=== PATIENT | male | born 1945 | race Caucasian/White ===

== ENCOUNTER → 2017-11-05 | Outpatient (CLI) | payer OTHER ==
[2017-11-05 13:58] LABS: DIGOXIN LEVEL 0.7 NG/ML (0.5-2.0)
== END ==
LOC: M SMT 10:10
DX: I48.91 Unspecified atrial fibrillation (principal)
CPT/HCPCS: 80162

== ENCOUNTER 2017-11-11 16:11 | Inpatient (IN) | payer OTHER ==
[2017-11-11 16:59] LABS: BASO # 0.1 10^3/uL (0.0-0.2); BASO % 0.7 % (0.0-1.0); EOS # 0.1 10^3/uL (0.0-0.50); EOS % 0.5 % (0.0-3.0); HEMATOCRIT 37.7 % (42.0-52.0); HEMOGLOBIN 12.4 g/dl (13.5-17.5); IMMATURE GRANULOCYTE % 0.6 % (0-3.0); LYMPH # 1.5 10^3/uL (1.5-4.5); LYMPH % 13.2 % (24.0-44.0); MEAN CORPUSCULAR HEMOGLOBIN 28.5 pg (27.0-33.0); MEAN CORPUSCULAR HGB CONC 32.9 g/dl (32.0-36.5); MEAN CORPUSCULAR VOLUME 86.7 fl (80.0-96.0); MONO # 0.9 10^3/uL (0.0-0.8); MONO % 8.5 % (0.0-5.0); NEUTROPHILS # 8.4 10^3/uL (1.8-7.7); NEUTROPHILS % 76.5 % (36.0-66.0); PLATELET COUNT, AUTOMATED 174 10^3/uL (150-450); RED BLOOD COUNT 4.35 10^6/uL (4.30-6.10); RED CELL DISTRIBUTION WIDTH 13.1 % (11.5-14.5)
[2017-11-11] MEDS: GI COCKTAIL 50ML BTL(HYOSCYAMINE/MAALOX/LIDOCAINE VISCOUS)(1:3:1) PO ×2 (17:14)
[2017-11-11 17:17] LABS: INR 2.52; PROTHROMBIN TIME 27.7 SECONDS (12.1-14.4)
[2017-11-11 18:04] LABS: ANION GAP 10 MEQ/L (8-16); BLOOD UREA NITROGEN 20 MG/DL (7-18); CALCIUM LEVEL 8.5 MG/DL (8.8-10.2); CARBON DIOXIDE LEVEL 24 MEQ/L (21-32); CHLORIDE LEVEL 102 MEQ/L (98-107); CPK CREATINE PHOSPHOKINASE 113 U/L (39-308); CREATININE FOR GFR 1.11 MG/DL (0.70-1.30); DIGOXIN LEVEL 0.6 NG/ML (0.5-2.0); GLOMERULAR FILTRATION RATE > 60.0 (>42); GLUCOSE, FASTING 453 MG/DL (70-100); MB/CK RELATIVE INDEX 5.13 (< OR =4); POTASSIUM SERUM 5.8 MEQ/L (3.5-5.1); SODIUM LEVEL 136 MEQ/L (136-145); TROPONIN I < 0.02 NG/ML (< 0.10)
[2017-11-11] MEDS: HumuLIN R (REGULAR) INSULIN (NovoLIN R) **100U/ML** PER UNIT IV ×4 (18:09→22:50)
[2017-11-11] MEDS: ATORVASTATIN 20 MG TAB PO ×2 (21:00)
[2017-11-11 22:17] LABS: CPK CREATINE PHOSPHOKINASE 84 U/L (39-308); MB/CK RELATIVE INDEX 5.24 (< OR =4); TROPONIN I < 0.02 NG/ML (< 0.10)
[2017-11-11] MEDS: NS 1,000 ML IV ×2 (22:50)
[2017-11-11] MEDS: ONDANSETRON 4MG/2ML VIAL (J2405) IV ×2 (22:50)
[2017-11-11] MEDS ORDERED: NITROGLYCERIN 0.4 MG SUBL TABLET SL ×2 (23:30)
[2017-11-11] MEDS ORDERED: GLUCAGON FOR INJ 1 MG VIAL (J1610) SC ×2 (23:45)
[2017-11-11] MEDS ORDERED: GLUCOSE 4 GM CHEW TABLET PO ×2 (23:45)
[2017-11-11] MEDS ORDERED: DEXTROSE 50% 50 ML SYRINGE IV ×2 (23:45)
[2017-11-12 01:41] LABS: BEDSIDE GLUCOSE 220 MG/DL (83-110)
[2017-11-12] MEDS: NS 1,000 ML IV ×2 (02:50)
[2017-11-12] MEDS: SOD POLYSTYRENE SULFONATE SUSP 15 GM/60 ML UD PO ×2 (02:50)
[2017-11-12 05:13] LABS: BEDSIDE GLUCOSE 340 MG/DL (83-110)
[2017-11-12 06:21] LABS: HEMATOCRIT 38.7 % (42.0-52.0); HEMOGLOBIN 12.6 g/dl (13.5-17.5); MEAN CORPUSCULAR HEMOGLOBIN 28.1 pg (27.0-33.0); MEAN CORPUSCULAR HGB CONC 32.6 g/dl (32.0-36.5); MEAN CORPUSCULAR VOLUME 86.2 fl (80.0-96.0); PLATELET COUNT, AUTOMATED 183 10^3/uL (150-450); RED BLOOD COUNT 4.49 10^6/uL (4.30-6.10); RED CELL DISTRIBUTION WIDTH 13.5 % (11.5-14.5); WHITE BLOOD COUNT 13.7 10^3/uL (4.0-10.0)
[2017-11-12 06:47] LABS: INR 2.44
[2017-11-12 06:54] LABS: ANION GAP 13 MEQ/L (8-16); BLOOD UREA NITROGEN 25 MG/DL (7-18); CALCIUM LEVEL 8.8 MG/DL (8.8-10.2); CARBON DIOXIDE LEVEL 22 MEQ/L (21-32); CHLORIDE LEVEL 105 MEQ/L (98-107); CREATININE FOR GFR 1.15 MG/DL (0.70-1.30); GLOMERULAR FILTRATION RATE > 60.0 (>42); GLUCOSE, FASTING 354 MG/DL (70-100); POTASSIUM SERUM 4.5 MEQ/L (3.5-5.1); SODIUM LEVEL 140 MEQ/L (136-145); THYROID STIMULATING HORMONE 0.577 uIU/ML (0.358-3.740); TROPONIN I 0.03 NG/ML (< 0.10)
[2017-11-12] MEDS: ONDANSETRON 4MG/2ML VIAL (J2405) IV ×2 (07:00)
[2017-11-12] MEDS: PANTOPRAZOLE 40MG TAB (PROTONIX) PO ×6 (08:00→17:37)
[2017-11-12 08:02] LABS: CPK CREATINE PHOSPHOKINASE 126 U/L (39-308); MB/CK RELATIVE INDEX 5.24 (< OR =4)
[2017-11-12] MEDS: DIGOXIN 0.125 MG TAB PO ×4 (09:00→13:18)
[2017-11-12] MEDS: LEVEMIR (INSULIN DETEMIR) 1 UNITS/0.01ML SC ×8 (09:00→21:01)
[2017-11-12] MEDS: ASPIRIN 81 MG ENTERIC TAB PO ×4 (09:00→13:18)
[2017-11-12] MEDS: CARVedilol 12.5 MG TAB PO ×6 (09:00→21:00)
[2017-11-12] MEDS: VITAMIN D 1,000 INTERNATIONAL UNITS TABLET PO ×4 (09:00→13:18)
[2017-11-12] MEDS: LISINOPRIL 20 MG TAB PO ×4 (09:00→13:18)
[2017-11-12 09:31] LABS: BEDSIDE GLUCOSE 375 MG/DL (83-110)
[2017-11-12] MEDS: HumaLOG INSULIN (NovoLOG) PER UNIT SC ×6 (09:36→17:37)
[2017-11-12] MEDS ORDERED: E-Z-HD 98% w/w 340GM SUSP BTL As Ordered ×2 (11:12)
[2017-11-12] MEDS ORDERED: E-Z-PAQUE 96% w/w SUSP 176GM BTL As Ordered ×2 (11:12)
[2017-11-12] MEDS ORDERED: E-Z-GAS II EFFERVESCENT PACKET (SODIUM BICARB./CITRIC ACID/SIMETHICONE) As Ordered ×2 (11:12)
[2017-11-12] MEDS ORDERED: ISOVUE-370 76% 100ML VIAL (Q9967) As Ordered ×2 (12:32)
[2017-11-12 13:02] LABS: BEDSIDE GLUCOSE 315 MG/DL (83-110)
[2017-11-12] MEDS: WARFARIN SOD 3 MG TAB PO ×2 (17:37)
[2017-11-12] MEDS: ATORVASTATIN 20 MG TAB PO ×2 (21:00)
[2017-11-13 06:13] LABS: HEMATOCRIT 36.7 % (42.0-52.0); HEMOGLOBIN 11.9 g/dl (13.5-17.5); MEAN CORPUSCULAR HEMOGLOBIN 28.5 pg (27.0-33.0); MEAN CORPUSCULAR HGB CONC 32.4 g/dl (32.0-36.5); MEAN CORPUSCULAR VOLUME 87.8 fl (80.0-96.0); PLATELET COUNT, AUTOMATED 175 10^3/uL (150-450); RED BLOOD COUNT 4.18 10^6/uL (4.30-6.10); WHITE BLOOD COUNT 15.1 10^3/uL (4.0-10.0)
[2017-11-13 06:19] LABS: INR 4.39
[2017-11-13 06:31] LABS: ANION GAP 8 MEQ/L (8-16); BLOOD UREA NITROGEN 34 MG/DL (7-18); CALCIUM LEVEL 8.2 MG/DL (8.8-10.2); CARBON DIOXIDE LEVEL 27 MEQ/L (21-32); CHLORIDE LEVEL 106 MEQ/L (98-107); CREATININE FOR GFR 1.26 MG/DL (0.70-1.30); GLOMERULAR FILTRATION RATE > 60.0 (>42); GLUCOSE, FASTING 337 MG/DL (70-100); SODIUM LEVEL 141 MEQ/L (136-145)
[2017-11-13 07:45] LABS: ESTIMATED AVERAGE GLUCOSE 174 MG/DL (60-110); HEMOGLOBIN A1c 7.7 %
[2017-11-13 07:56] LABS: CPK CREATINE PHOSPHOKINASE 389 U/L (39-308); MB/CK RELATIVE INDEX 3.24 (< OR =4); TROPONIN I 2.18 NG/ML (< 0.10)
[2017-11-13] MEDS: LISINOPRIL 20 MG TAB PO ×2 (08:20)
[2017-11-13] MEDS: DIGOXIN 0.125 MG TAB PO ×2 (08:20)
[2017-11-13] MEDS: CARVedilol 12.5 MG TAB PO ×4 (08:21→21:32)
[2017-11-13] MEDS: ASPIRIN 81 MG ENTERIC TAB PO ×2 (08:21)
[2017-11-13] MEDS: VITAMIN D 1,000 INTERNATIONAL UNITS TABLET PO ×2 (08:21)
[2017-11-13] MEDS: PANTOPRAZOLE 40MG TAB (PROTONIX) PO ×4 (08:22→17:29)
[2017-11-13] MEDS: LEVEMIR (INSULIN DETEMIR) 1 UNITS/0.01ML SC ×2 (08:22)
[2017-11-13] MEDS: HumaLOG INSULIN (NovoLOG) PER UNIT SC ×6 (08:23→17:30)
[2017-11-13 11:53] LABS: BEDSIDE GLUCOSE 219 MG/DL (83-110)
[2017-11-13 11:53] LABS: BEDSIDE GLUCOSE 325 MG/DL (83-110)
[2017-11-13 11:53] LABS: BEDSIDE GLUCOSE 217 MG/DL (83-110)
[2017-11-13 11:53] LABS: BEDSIDE GLUCOSE 415 MG/DL (83-110)
[2017-11-13 13:04] LABS: CPK CREATINE PHOSPHOKINASE 473 U/L (39-308); MB/CK RELATIVE INDEX 2.73 (< OR =4); TROPONIN I 1.45 NG/ML (< 0.10)
[2017-11-13] MEDS ORDERED: SLF 3 ML SYR IV ×2 (14:45)
[2017-11-13] MEDS: ACETAMINOPHEN TAB 650MG DOSE (2X325MG) PO ×2 (16:24)
[2017-11-13 16:57] LABS: BEDSIDE GLUCOSE 165 MG/DL (83-110)
[2017-11-13] MEDS ORDERED: WARFARIN SOD 3 MG TAB PO ×2 (17:00)
[2017-11-13] MEDS: ATORVASTATIN 20 MG TAB PO ×2 (21:31)
[2017-11-13] MEDS: SLF 3 ML SYR IV ×2 (21:32)
[2017-11-13 21:50] LABS: APPEARANCE, URINE CLEAR (CLEAR); BACTERIA, URINE AUTO NEGATIVE (NEGATIVE); BILIRUBIN, URINE AUTO NEGATIVE (NEGATIVE); BLOOD, URINE BLOOD 2+ (NEGATIVE); COLOR, URINE STRAW (YELLOW); GLUCOSE, URINE (UA) AUTO NEGATIVE (NEGATIVE); KETONE, URINE AUTO NEGATIVE (NEGATIVE); LEUKOCYTE ESTERASE, URINE AUTO NEGATIVE (NEGATIVE); MUCUS, URINE SMALL (NEGATIVE); NITRITE, URINE AUTO NEGATIVE (NEGATIVE); PROTEIN, URINE AUTO NEGATIVE (NEGATIVE); RBC, URINE AUTO 8 /HPF (0-3); SPECIFIC GRAVITY URINE AUTO 1.008 (1.002-1.035); SQUAMOUS EPITHELIAL CELL UR AU 0 /HPF (0-6); UROBILINOGEN, URINE AUTO 0.2 mg/dL (0.0-2.0); WBC, URINE AUTO 2 /HPF (0-3)
[2017-11-13 21:51] LABS: INR 3.85; PROTHROMBIN TIME 38.8 SECONDS (12.1-14.4)
[2017-11-14] MEDS: ACETAMINOPHEN TAB 650MG DOSE (2X325MG) PO ×4 (00:56→11:50)
[2017-11-14] MEDS: SLF 3 ML SYR IV ×6 (06:00→21:01)
[2017-11-14 06:45] LABS: HEMATOCRIT 36.5 % (42.0-52.0); HEMOGLOBIN 12.2 g/dl (13.5-17.5); MEAN CORPUSCULAR HEMOGLOBIN 28.4 pg (27.0-33.0); MEAN CORPUSCULAR HGB CONC 33.4 g/dl (32.0-36.5); MEAN CORPUSCULAR VOLUME 84.9 fl (80.0-96.0); PLATELET COUNT, AUTOMATED 159 10^3/uL (150-450); RED CELL DISTRIBUTION WIDTH 13.2 % (11.5-14.5); WHITE BLOOD COUNT 10.4 10^3/uL (4.0-10.0)
[2017-11-14 06:54] LABS: INR 2.93; PROTHROMBIN TIME 31.2 SECONDS (12.1-14.4)
[2017-11-14 07:35] LABS: ANION GAP 9 MEQ/L (8-16); BLOOD UREA NITROGEN 14 MG/DL (7-18); CARBON DIOXIDE LEVEL 28 MEQ/L (21-32); CHLORIDE LEVEL 105 MEQ/L (98-107); CPK CREATINE PHOSPHOKINASE 225 U/L (39-308); CREATININE FOR GFR 0.76 MG/DL (0.70-1.30); GLOMERULAR FILTRATION RATE > 60.0 (>42); GLUCOSE, FASTING 192 MG/DL (70-100); MB/CK RELATIVE INDEX 2.18 (< OR =4); POTASSIUM SERUM 3.8 MEQ/L (3.5-5.1); SODIUM LEVEL 142 MEQ/L (136-145); TROPONIN I 0.66 NG/ML (< 0.10)
[2017-11-14] MEDS: ASPIRIN 81 MG ENTERIC TAB PO ×2 (07:57)
[2017-11-14] MEDS: HumaLOG INSULIN (NovoLOG) PER UNIT SC ×6 (07:57→18:00)
[2017-11-14] MEDS: VITAMIN D 1,000 INTERNATIONAL UNITS TABLET PO ×2 (07:57)
[2017-11-14] MEDS: PANTOPRAZOLE 40MG TAB (PROTONIX) PO ×4 (07:58→18:45)
[2017-11-14] MEDS: DIGOXIN 0.125 MG TAB PO ×2 (07:58)
[2017-11-14] MEDS: LISINOPRIL 20 MG TAB PO ×2 (07:59)
[2017-11-14] MEDS: CARVedilol 12.5 MG TAB PO ×4 (08:00→20:17)
[2017-11-14] MEDS: CLOPIDOGREL 75 MG TAB PO ×2 (11:50)
[2017-11-14 11:52] LABS: BEDSIDE GLUCOSE 291 MG/DL (83-110)
[2017-11-14] MEDS: MAGIC MOUTHWASH SUSPENSION BTL SSP ×2 (17:14)
[2017-11-14 17:52] LABS: BEDSIDE GLUCOSE 281 MG/DL (83-110)
[2017-11-14] MEDS: ATORVASTATIN 20 MG TAB PO ×2 (20:16)
[2017-11-15] MEDS: CARVedilol 12.5 MG TAB PO ×2 (05:17)
[2017-11-15] MEDS: SLF 3 ML SYR IV ×2 (05:18)
[2017-11-15 05:40] LABS: HEMOGLOBIN 13.4 g/dl (13.5-17.5); MEAN CORPUSCULAR HEMOGLOBIN 28.2 pg (27.0-33.0); MEAN CORPUSCULAR HGB CONC 32.7 g/dl (32.0-36.5); MEAN CORPUSCULAR VOLUME 86.1 fl (80.0-96.0); PLATELET COUNT, AUTOMATED 165 10^3/uL (150-450); RED BLOOD COUNT 4.76 10^6/uL (4.30-6.10); RED CELL DISTRIBUTION WIDTH 12.8 % (11.5-14.5); WHITE BLOOD COUNT 12.2 10^3/uL (4.0-10.0)
[2017-11-15 05:47] LABS: INR 1.66; PROTHROMBIN TIME 19.9 SECONDS (12.1-14.4)
[2017-11-15 06:25] LABS: ANION GAP 13 MEQ/L (8-16); BLOOD UREA NITROGEN 14 MG/DL (7-18); CALCIUM LEVEL 8.6 MG/DL (8.8-10.2); CARBON DIOXIDE LEVEL 23 MEQ/L (21-32); CHLORIDE LEVEL 102 MEQ/L (98-107); CPK CREATINE PHOSPHOKINASE 99 U/L (39-308); CREATININE FOR GFR 0.74 MG/DL (0.70-1.30); GLOMERULAR FILTRATION RATE > 60.0 (>42); GLUCOSE, FASTING 321 MG/DL (70-100); MB/CK RELATIVE INDEX 2.22 (< OR =4); POTASSIUM SERUM 4.4 MEQ/L (3.5-5.1); SODIUM LEVEL 138 MEQ/L (136-145); TROPONIN I 0.29 NG/ML (< 0.10)
[2017-11-15] MEDS: HumaLOG INSULIN (NovoLOG) PER UNIT SC ×2 (08:15)
[2017-11-15] MEDS: PANTOPRAZOLE 40MG TAB (PROTONIX) PO ×2 (08:15)
[2017-11-15] MEDS: DIGOXIN 0.125 MG TAB PO ×2 (08:15)
[2017-11-15] MEDS: VITAMIN D 1,000 INTERNATIONAL UNITS TABLET PO ×2 (08:16)
[2017-11-15] MEDS: ASPIRIN 81 MG ENTERIC TAB PO ×2 (08:16)
[2017-11-15] MEDS: CLOPIDOGREL 75 MG TAB PO ×2 (08:16)
[2017-11-15] MEDS: LISINOPRIL 20 MG TAB PO ×2 (08:16)
[2017-11-15] MEDS: SENOKOT S TAB PO ×2 (09:30)
[2017-11-15] MEDS: MOM 30ML SUSPENSION UDC PO ×2 (09:30)
== END 2017-11-15 10:55 | disposition short-term general hospital (02) | DRG 190 ==
LOC: M MSPAV 11-13 14:27 → M PCU 11-13 14:27 → M ED INP 11-12 08:20 → M ED 16:11 → M MSPAV 11-12 14:28 → M ED INP 11-12 08:20 → M MSPAV 11-13 07:09 → M PCU 11-13 14:27
DX: I21.4 Non-ST elevation (NSTEMI) myocardial infarction (principal); E10.65 Type 1 diabetes mellitus with hyperglycemia; E87.5 Hyperkalemia; I48.2 Chronic atrial fibrillation; K52.9 Noninfective gastroenteritis and colitis, unspecified; E78.5 Hyperlipidemia, unspecified; I25.10 Atherosclerotic heart disease of native coronary artery without angina pectoris; K21.9 Gastro-esophageal reflux disease without esophagitis; Z88.6 Allergy status to analgesic agent; Z88.1 Allergy status to other antibiotic agents; Z79.82 Long term (current) use of aspirin; Z79.4 Long term (current) use of insulin; Z79.01 Long term (current) use of anticoagulants; Z79.899 Other long term (current) drug therapy; Z95.9 Presence of cardiac and vascular implant and graft, unspecified; Z96.41 Presence of insulin pump (external) (internal); Z87.891 Personal history of nicotine dependence

== ENCOUNTER 2017-12-14 11:32 | Inpatient (IN) | payer OTHER, MEDICARE ==
[2017-12-14 12:04] LABS: BASO # 0.1 10^3/uL (0.0-0.2); BASO % 1.1 % (0.0-1.0); EOS # 0.1 10^3/uL (0.0-0.50); EOS % 0.9 % (0.0-3.0); HEMATOCRIT 38.7 % (42.0-52.0); HEMOGLOBIN 12.9 g/dl (13.5-17.5); IMMATURE GRANULOCYTE % 0.4 % (0-3.0); LYMPH # 1.7 10^3/uL (1.5-4.5); LYMPH % 18.9 % (24.0-44.0); MEAN CORPUSCULAR HEMOGLOBIN 28.6 pg (27.0-33.0); MEAN CORPUSCULAR HGB CONC 33.3 g/dl (32.0-36.5); MEAN CORPUSCULAR VOLUME 85.8 fl (80.0-96.0); MONO # 0.8 10^3/uL (0.0-0.8); NEUTROPHILS # 6.4 10^3/uL (1.8-7.7); NEUTROPHILS % 69.7 % (36.0-66.0); PLATELET COUNT, AUTOMATED 154 10^3/uL (150-450); RED BLOOD COUNT 4.51 10^6/uL (4.30-6.10); RED CELL DISTRIBUTION WIDTH 13.2 % (11.5-14.5); WHITE BLOOD COUNT 9.2 10^3/uL (4.0-10.0)
[2017-12-14 12:15] LABS: PROTHROMBIN TIME 36.7 SECONDS (12.1-14.4)
[2017-12-14] MEDS: ONDANSETRON 4MG/2ML VIAL (J2405) IV ×2 (12:30→19:54)
[2017-12-14] MEDS: NITROGLYCERIN 2% OINT 1 GM *U/D* PKT TOP (12:30)
[2017-12-14 12:50] LABS: BEDSIDE GLUCOSE 392 MG/DL (83-110)
[2017-12-14] MEDS: NS 500 ML IV ×4 (13:09→21:15)
[2017-12-14 13:25] LABS: BLOOD UREA NITROGEN 20 MG/DL (7-18); CREATININE FOR GFR 1.12 MG/DL (0.70-1.30); GLOMERULAR FILTRATION RATE > 60.0 (>42); GLUCOSE, FASTING 391 MG/DL (70-100)
[2017-12-14] MEDS: GI COCKTAIL 50ML BTL(HYOSCYAMINE/MAALOX/LIDOCAINE VISCOUS)(1:3:1) PO ×2 (13:26→18:30)
[2017-12-14] MEDS: MORPHINE 2 MG/ML 1ML SYRINGE (J2270) IV (13:41)
[2017-12-14 14:01] LABS: SODIUM LEVEL 133 MEQ/L (136-145)
[2017-12-14 14:03] LABS: CARBON DIOXIDE LEVEL 24 MEQ/L (21-32); CHLORIDE LEVEL 101 MEQ/L (98-107); POTASSIUM SERUM 6.8 MEQ/L (3.5-5.1)
[2017-12-14] MEDS: METOCLOPRAMIDE INJ 10MG/2ML VIAL (J2765) IV ×2 (14:05→17:16)
[2017-12-14 14:46] LABS: MAGNESIUM LEVEL 1.7 MG/DL (1.8-2.4)
[2017-12-14 14:49] LABS: DIGOXIN LEVEL 0.9 NG/ML (0.5-2.0)
[2017-12-14 15:18] LABS: ALT/SGPT 17 U/L (12-78); AST/SGOT 16 U/L (7-37); CALCIUM LEVEL 8.7 MG/DL (8.8-10.2)
[2017-12-14 15:19] LABS: ALBUMIN 3.5 GM/DL (3.2-5.2); ALBUMIN/GLOBULIN RATIO 1.21 (1.00-1.93); BILIRUBIN,DIRECT 0.3 MG/DL (0.0-0.2); BILIRUBIN,TOTAL 0.9 MG/DL (0.2-1.0); CK-MB VALUE MASS 3.1 NG/ML (<3.6); CPK CREATINE PHOSPHOKINASE 48 U/L (39-308); LIPASE 79 U/L (73-393); NT-PRO BNP 676 PG/ML (<125); TOTAL PROTEIN 6.4 GM/DL (6.4-8.2); TROPONIN I < 0.02 NG/ML (< 0.10)
[2017-12-14 15:20] LABS: MB/CK RELATIVE INDEX 6.45 (< OR =4)
[2017-12-14 15:21] LABS: ALKALINE PHOSPHATASE 83 U/L (45-117); ANION GAP 8 MEQ/L (8-16)
[2017-12-14] MEDS ORDERED: ISOVUE-370 76% 100ML VIAL (Q9967) As Ordered (16:12)
[2017-12-14 16:35] LABS: ANION GAP 10 MEQ/L (8-16); BLOOD UREA NITROGEN 24 MG/DL (7-18); CALCIUM LEVEL 8.4 MG/DL (8.8-10.2); CARBON DIOXIDE LEVEL 23 MEQ/L (21-32); CHLORIDE LEVEL 107 MEQ/L (98-107); CK-MB VALUE MASS 2.4 NG/ML (<3.6); CPK CREATINE PHOSPHOKINASE 39 U/L (39-308); CREATININE FOR GFR 1.09 MG/DL (0.70-1.30); GLOMERULAR FILTRATION RATE > 60.0 (>42); GLUCOSE, FASTING 397 MG/DL (70-100); POTASSIUM SERUM 5.1 MEQ/L (3.5-5.1); SODIUM LEVEL 140 MEQ/L (136-145)
[2017-12-14 16:36] LABS: MB/CK RELATIVE INDEX 6.15 (< OR =4); TROPONIN I < 0.02 NG/ML (< 0.10)
[2017-12-14] MEDS ORDERED: ACETAMINOPHEN TAB 650MG DOSE (2X325MG) PO (18:15)
[2017-12-14] MEDS: MAG SULF 1GM/100ML (MAG RUN) 1 GM in APPROPRIATE DILUENT 1 EA IV (18:30)
[2017-12-14] MEDS: NS 1,000 ML IV (18:30)
[2017-12-14] MEDS ORDERED: NITROGLYCERIN 0.4 MG SUBL TABLET SL (19:00)
[2017-12-14] MEDS ORDERED: GLUCAGON FOR INJ 1 MG VIAL (J1610) SC (19:15)
[2017-12-14] MEDS ORDERED: DEXTROSE 50% 50 ML SYRINGE IV (19:15)
[2017-12-14] MEDS ORDERED: GLUCOSE 4 GM CHEW TABLET PO (19:15)
[2017-12-14 20:53] LABS: BEDSIDE GLUCOSE 431 MG/DL (83-110)
[2017-12-14] MEDS: CARVedilol 12.5 MG TAB PO (21:00)
[2017-12-14] MEDS: ATORVASTATIN 20 MG TAB PO (21:00)
[2017-12-14] MEDS: HumaLOG INSULIN (NovoLOG) PER UNIT SC (21:21)
[2017-12-14] MEDS: PANTOPRAZOLE 40MG INJ (PROTONIX) (C9113) IV (21:22)
[2017-12-14] MEDS: SUCRALFATE SUSP 1GM/10ML UD PO (21:46)
[2017-12-14] MEDS ORDERED: HEPARIN SOD (PORCINE) 5000 UNITS/ML VIAL SC (22:00)
[2017-12-14 22:27] LABS: CPK CREATINE PHOSPHOKINASE 36 U/L (39-308); MB/CK RELATIVE INDEX 5.83 (< OR =4); TROPONIN I 0.02 NG/ML (< 0.10)
[2017-12-15] MEDS: NS 1,000 ML IV ×4 (00:02→20:47)
[2017-12-15 04:07] LABS: BEDSIDE GLUCOSE 400 MG/DL (83-110)
[2017-12-15] MEDS: HumaLOG INSULIN (NovoLOG) PER UNIT SC ×5 (04:43→21:05)
[2017-12-15 07:24] LABS: BASO % 0.2 % (0.0-1.0); HEMATOCRIT 35.3 % (42.0-52.0); IMMATURE GRANULOCYTE % 0.6 % (0-3.0); LYMPH # 1.5 10^3/uL (1.5-4.5); LYMPH % 11.4 % (24.0-44.0); MEAN CORPUSCULAR HEMOGLOBIN 28.2 pg (27.0-33.0); MEAN CORPUSCULAR HGB CONC 31.2 g/dl (32.0-36.5); MEAN CORPUSCULAR VOLUME 90.5 fl (80.0-96.0); MONO # 0.7 10^3/uL (0.0-0.8); MONO % 5.1 % (0.0-5.0); NEUTROPHILS % 82.7 % (36.0-66.0); PLATELET COUNT, AUTOMATED 142 10^3/uL (150-450); RED CELL DISTRIBUTION WIDTH 14.2 % (11.5-14.5); WHITE BLOOD COUNT 13.3 10^3/uL (4.0-10.0)
[2017-12-15 07:37] LABS: INR 4.53; PROTHROMBIN TIME 44.1 SECONDS (12.1-14.4)
[2017-12-15 07:51] LABS: ALBUMIN/GLOBULIN RATIO 1.07 (1.00-1.93); ALKALINE PHOSPHATASE 71 U/L (45-117); ALT/SGPT 15 U/L (12-78); ANION GAP 15 MEQ/L (8-16); AST/SGOT 17 U/L (7-37); BILIRUBIN,TOTAL 0.8 MG/DL (0.2-1.0); BLOOD UREA NITROGEN 40 MG/DL (7-18); CALCIUM LEVEL 8.2 MG/DL (8.8-10.2); CARBON DIOXIDE LEVEL 17 MEQ/L (21-32); CHLORIDE LEVEL 106 MEQ/L (98-107); CPK CREATINE PHOSPHOKINASE 60 U/L (39-308); CREATININE FOR GFR 1.71 MG/DL (0.70-1.30); GLOMERULAR FILTRATION RATE 42.3 (>42); GLUCOSE, FASTING 495 MG/DL (70-100); MAGNESIUM LEVEL 2.1 MG/DL (1.8-2.4); MB/CK RELATIVE INDEX 12.33 (< OR =4); POTASSIUM SERUM 4.6 MEQ/L (3.5-5.1); SODIUM LEVEL 138 MEQ/L (136-145); TOTAL PROTEIN 5.8 GM/DL (6.4-8.2); TROPONIN I 0.87 NG/ML (< 0.10)
[2017-12-15] MEDS: SUCRALFATE SUSP 1GM/10ML UD PO ×4 (07:59→21:04)
[2017-12-15] MEDS: ASPIRIN 81 MG ENTERIC TAB PO (08:00)
[2017-12-15] MEDS: DIGOXIN 0.125 MG TAB PO (08:00)
[2017-12-15] MEDS: LISINOPRIL 20 MG TAB PO (08:01)
[2017-12-15] MEDS: CARVedilol 12.5 MG TAB PO ×2 (08:02→21:06)
[2017-12-15 08:44] LABS: BEDSIDE GLUCOSE 479 MG/DL (83-110)
[2017-12-15] MEDS: LEVEMIR (INSULIN DETEMIR) 1 UNITS/0.01ML SC ×2 (09:31→21:05)
[2017-12-15 10:28] LABS: BEDSIDE GLUCOSE 435 MG/DL (83-110)
[2017-12-15 10:30] LABS: BEDSIDE GLUCOSE 449 MG/DL (83-110)
[2017-12-15 12:16] LABS: BEDSIDE GLUCOSE 426 MG/DL (83-110)
[2017-12-15 14:50] LABS: ABG BASE EXCESS -5.3 (-2.0-2.0); ABG HCO3 18.7 MEQ/L (22.0-26.0); ABG PARTIAL PRESSURE CO2 31.9 mmHg (35.0-45.0); ABG PARTIAL PRESSURE O2 80.3 mmHg (75.0-100.0); ABG STANDARD HCO3 20.1 MEQ/L (22.0-26.0); ABG TOTAL CO2 19.7 MEQ/L (23.0-31.0); ABG pH (ARTERIAL) 7.387 UNITS (7.350-7.450)
[2017-12-15 15:18] LABS: TROPONIN I 2.39 NG/ML (< 0.10)
[2017-12-15 15:19] LABS: ANION GAP 6 MEQ/L (8-16); BLOOD UREA NITROGEN 44 MG/DL (7-18); CALCIUM LEVEL 7.8 MG/DL (8.8-10.2); CARBON DIOXIDE LEVEL 25 MEQ/L (21-32); CHLORIDE LEVEL 107 MEQ/L (98-107); CREATININE FOR GFR 1.77 MG/DL (0.70-1.30); GLOMERULAR FILTRATION RATE 40.7 (>42); GLUCOSE, FASTING 456 MG/DL (70-100); POTASSIUM SERUM 4.5 MEQ/L (3.5-5.1); SODIUM LEVEL 138 MEQ/L (136-145)
[2017-12-15 16:43] LABS: ANION GAP 7 MEQ/L (8-16); BLOOD UREA NITROGEN 45 MG/DL (7-18); CARBON DIOXIDE LEVEL 24 MEQ/L (21-32); CHLORIDE LEVEL 107 MEQ/L (98-107); CREATININE FOR GFR 1.75 MG/DL (0.70-1.30); GLOMERULAR FILTRATION RATE 41.2 (>42); GLUCOSE, FASTING 406 MG/DL (70-100); POTASSIUM SERUM 4.4 MEQ/L (3.5-5.1); SODIUM LEVEL 138 MEQ/L (136-145)
[2017-12-15 17:40] LABS: BEDSIDE GLUCOSE 331 MG/DL (83-110)
[2017-12-15 20:51] LABS: BEDSIDE GLUCOSE 291 MG/DL (83-110)
[2017-12-15] MEDS: PANTOPRAZOLE 40MG INJ (PROTONIX) (C9113) IV (21:04)
[2017-12-15] MEDS: ATORVASTATIN 20 MG TAB PO (21:05)
[2017-12-15] MEDS ORDERED: SLF 3 ML SYR IV (23:15)
[2017-12-16] MEDS: SLF 3 ML SYR IV ×3 (05:07→21:11)
[2017-12-16 05:54] LABS: BASO # 0.1 10^3/uL (0.0-0.2); BASO % 0.4 % (0.0-1.0); EOS # 0.1 10^3/uL (0.0-0.50); EOS % 0.4 % (0.0-3.0); HEMATOCRIT 33.9 % (42.0-52.0); HEMOGLOBIN 11.3 g/dl (13.5-17.5); IMMATURE GRANULOCYTE % 0.4 % (0-3.0); LYMPH # 3.2 10^3/uL (1.5-4.5); MEAN CORPUSCULAR HGB CONC 33.3 g/dl (32.0-36.5); MEAN CORPUSCULAR VOLUME 86.9 fl (80.0-96.0); MONO % 7.4 % (0.0-5.0); NEUTROPHILS # 9.5 10^3/uL (1.8-7.7); NEUTROPHILS % 68.4 % (36.0-66.0); PLATELET COUNT, AUTOMATED 141 10^3/uL (150-450); RED CELL DISTRIBUTION WIDTH 14.3 % (11.5-14.5); WHITE BLOOD COUNT 13.9 10^3/uL (4.0-10.0)
[2017-12-16] MEDS: NS 1,000 ML IV (05:56)
[2017-12-16 06:24] LABS: ALBUMIN 2.5 GM/DL (3.2-5.2); ALBUMIN/GLOBULIN RATIO 0.89 (1.00-1.93); ALKALINE PHOSPHATASE 62 U/L (45-117); ALT/SGPT 21 U/L (12-78); ANION GAP 5 MEQ/L (8-16); AST/SGOT 22 U/L (7-37); BILIRUBIN,TOTAL 0.5 MG/DL (0.2-1.0); BLOOD UREA NITROGEN 35 MG/DL (7-18); CALCIUM LEVEL 8.1 MG/DL (8.8-10.2); CARBON DIOXIDE LEVEL 26 MEQ/L (21-32); CHLORIDE LEVEL 113 MEQ/L (98-107); CREATININE FOR GFR 1.14 MG/DL (0.70-1.30); GLOMERULAR FILTRATION RATE > 60.0 (>42); GLUCOSE, FASTING 112 MG/DL (70-100); MAGNESIUM LEVEL 2.4 MG/DL (1.8-2.4); POTASSIUM SERUM 4.2 MEQ/L (3.5-5.1); SODIUM LEVEL 144 MEQ/L (136-145); TOTAL PROTEIN 5.3 GM/DL (6.4-8.2)
[2017-12-16 07:25] LABS: PROTHROMBIN TIME 57.8 SECONDS (12.1-14.4)
[2017-12-16] MEDS: SUCRALFATE SUSP 1GM/10ML UD PO ×4 (08:12→20:48)
[2017-12-16] MEDS: HumaLOG INSULIN (NovoLOG) PER UNIT SC ×3 (08:13→17:37)
[2017-12-16] MEDS: ASPIRIN 81 MG ENTERIC TAB PO (08:13)
[2017-12-16] MEDS: DIGOXIN 0.125 MG TAB PO (08:13)
[2017-12-16] MEDS: CARVedilol 12.5 MG TAB PO ×3 (08:14→20:51)
[2017-12-16] MEDS: LEVEMIR (INSULIN DETEMIR) 1 UNITS/0.01ML SC (08:14)
[2017-12-16 08:48] LABS: CPK CREATINE PHOSPHOKINASE 64 U/L (39-308); TROPONIN I 1.74 NG/ML (< 0.10)
[2017-12-16 08:55] LABS: INR 6.37
[2017-12-16 10:40] LABS: BEDSIDE GLUCOSE 174 MG/DL (83-110)
[2017-12-16 11:50] LABS: BEDSIDE GLUCOSE 163 MG/DL (83-110)
[2017-12-16 17:13] LABS: BEDSIDE GLUCOSE 115 MG/DL (83-110)
[2017-12-16 20:47] LABS: BEDSIDE GLUCOSE 155 MG/DL (83-110)
[2017-12-16] MEDS: ATORVASTATIN 20 MG TAB PO (20:47)
[2017-12-16] MEDS: PANTOPRAZOLE 40MG INJ (PROTONIX) (C9113) IV (20:48)
[2017-12-17] MEDS: SLF 3 ML SYR IV (05:36)
[2017-12-17 06:59] LABS: BASO # 0.1 10^3/uL (0.0-0.2); BASO % 1.1 % (0.0-1.0); EOS # 0.2 10^3/uL (0.0-0.50); EOS % 3.4 % (0.0-3.0); HEMATOCRIT 34.6 % (42.0-52.0); HEMOGLOBIN 11.5 g/dl (13.5-17.5); IMMATURE GRANULOCYTE % 0.2 % (0-3.0); LYMPH # 1.8 10^3/uL (1.5-4.5); LYMPH % 26.9 % (24.0-44.0); MEAN CORPUSCULAR HEMOGLOBIN 28.5 pg (27.0-33.0); MEAN CORPUSCULAR HGB CONC 33.2 g/dl (32.0-36.5); MEAN CORPUSCULAR VOLUME 85.6 fl (80.0-96.0); MONO # 0.8 10^3/uL (0.0-0.8); MONO % 11.5 % (0.0-5.0); NEUTROPHILS # 3.7 10^3/uL (1.8-7.7); NEUTROPHILS % 56.9 % (36.0-66.0); PLATELET COUNT, AUTOMATED 108 10^3/uL (150-450); RED BLOOD COUNT 4.04 10^6/uL (4.30-6.10); RED CELL DISTRIBUTION WIDTH 13.6 % (11.5-14.5); WHITE BLOOD COUNT 6.5 10^3/uL (4.0-10.0)
[2017-12-17 07:05] LABS: INR 3.03; PROTHROMBIN TIME 32.1 SECONDS (12.1-14.4)
[2017-12-17 07:37] LABS: ALBUMIN 2.7 GM/DL (3.2-5.2); ALBUMIN/GLOBULIN RATIO 0.96 (1.00-1.93); ALKALINE PHOSPHATASE 81 U/L (45-117); ALT/SGPT 45 U/L (12-78); ANION GAP 7 MEQ/L (8-16); AST/SGOT 52 U/L (7-37); BILIRUBIN,TOTAL 0.8 MG/DL (0.2-1.0); BLOOD UREA NITROGEN 16 MG/DL (7-18); CALCIUM LEVEL 8.2 MG/DL (8.8-10.2); CARBON DIOXIDE LEVEL 28 MEQ/L (21-32); CHLORIDE LEVEL 109 MEQ/L (98-107); CREATININE FOR GFR 0.75 MG/DL (0.70-1.30); GLOMERULAR FILTRATION RATE > 60.0 (>42); GLUCOSE, FASTING 148 MG/DL (70-100); MAGNESIUM LEVEL 1.8 MG/DL (1.8-2.4); POTASSIUM SERUM 4.1 MEQ/L (3.5-5.1); SODIUM LEVEL 144 MEQ/L (136-145); TOTAL PROTEIN 5.5 GM/DL (6.4-8.2)
[2017-12-17] MEDS: SUCRALFATE SUSP 1GM/10ML UD PO (07:58)
[2017-12-17] MEDS: ASPIRIN 81 MG ENTERIC TAB PO (08:00)
[2017-12-17] MEDS: CARVedilol 12.5 MG TAB PO (08:00)
[2017-12-17] MEDS: DIGOXIN 0.125 MG TAB PO (08:00)
== END 2017-12-17 10:42 | disposition home or self-care (01) | DRG 313 ==
LOC: M PCU 12-15 16:07 → M ED 11:32 → M ED INP 18:06
DX: R07.89 Other chest pain (principal); N17.9 Acute kidney failure, unspecified; I24.9 Acute ischemic heart disease, unspecified; I48.1 Persistent atrial fibrillation; I25.119 Atherosclerotic heart disease of native coronary artery with unspecified angina pectoris; E10.65 Type 1 diabetes mellitus with hyperglycemia; I48.2 Chronic atrial fibrillation; I10 Essential (primary) hypertension; N14.2 Nephropathy induced by unspecified drug, medicament or biological substance; R79.1 Abnormal coagulation profile; E78.5 Hyperlipidemia, unspecified; K21.9 Gastro-esophageal reflux disease without esophagitis; E55.9 Vitamin D deficiency, unspecified; Z96.41 Presence of insulin pump (external) (internal); Z79.82 Long term (current) use of aspirin; Z79.4 Long term (current) use of insulin; Z79.01 Long term (current) use of anticoagulants; Z88.1 Allergy status to other antibiotic agents; Z87.891 Personal history of nicotine dependence; Z88.6 Allergy status to analgesic agent; Z95.9 Presence of cardiac and vascular implant and graft, unspecified

== ENCOUNTER → 2018-06-07 | Outpatient (CLI) | payer OTHER ==
[~2018-06-07] MED LIST: AMLO2.5T3 PO; ASPI81TAEC PO; ATOR40TA75 PO; BABY81CH PO; CALC1TAB63 PO; CALCTAB7 PO; CARV25TA PO; CORE25TA PO; COUM6TAB PO; COUMADIN PO; DIGO0.12 PO; DIGO0.257 OR; DRIS50003 PO; GLUC1KIT IM; INSUH10VL SC; INSUHUMDS SC; LISI-538 PO; LISI20TA5 OR; MAALSUS PO; METO5TAB2 OR; NEXI1CAP3 OR; NITR4TASL SL; NOVOLOG100 MG/ML SC; PANT40TA3 PO; PLAV1TAB2 PO; PLAV75TA2 OR; SIMV20TA2 OR; VITA200015 PO; WARF-58 PO; WARF-60 PO; ZANT300T9 PO
--- NOTE | 2018-06-07 15:21 | REP ---
Right lower extremity duplex Doppler vascular ultrasound: Brachial artery flow velocity: 124 centimeters per second Dorsalis penis flow velocity: Unobtainable READINESS PARAPROFESSIONAL flow velocity: 160 cm/sec ROXANNA: Unobtainable Peak Systolic Phasicity Velocity TSA SCREENER 86.2 triphasic Profunda 87.9 biphasic SFA prox 77.7 triphasic SFA mid 97.3 triphasic SFA dist 69.8 triphasic Pop 94.7 triphasic YAMILET prox 41.0 biphasic Tib/P tr 78.4 triphasic READINESS PARAPROFESSIONAL pr 47.7 triphasic READINESS PARAPROFESSIONAL dst 110.7 monophasic YAMILET dst 40.1 monophasic Impression: There is stenosis from the proximal to distal READINESS PARAPROFESSIONAL . There is moderate atherosclerotic disease throughout. Left lower extremity duplex Doppler vascular ultrasound: Brachial artery flow velocity: 132 cm/sec The dorsalis penis flow velocity: Unobtainable READINESS PARAPROFESSIONAL flow velocity: 180 cm/sec ROXANNA: Unobtainable Peak Systolic Phasicity Velocity TSA SCREENER 47 point a triphasic Profunda 78.4 biphasic SFA prox 76.0 biphasic SFA mid 82.1 triphasic SFA dist 77.5 triphasic Pop 855.3 biphasic YAMILET prox 42.1 biphasic Tib/P tr 84.5 triphasic READINESS PARAPROFESSIONAL pr 41.9 biphasic READINESS PARAPROFESSIONAL dst 27.5 monophasic YAMILET dst 100.0 monophasic Impression: There is stenosis from the proximal to the distal YAMILET . There is moderate atherosclerotic disease throughout. Electronically Signed by Osman Burroughs MD 06/07/2018 03:13 P
== END ==
LOC: M RAD 12:49
PROVIDERS: ATTEND Family Medicine
DX: I73.9 Peripheral vascular disease, unspecified (principal)

== ENCOUNTER → 2018-06-30 | Outpatient (CLI) | payer OTHER ==
[2018-06-30 11:09] LABS: BASO # 0.1 10^3/uL (0.0-0.2); BASO % 1.1 % (0.0-1.0); EOS # 0.1 10^3/uL (0.0-0.50); EOS % 1.1 % (0.0-3.0); HEMATOCRIT 39.2 % (42.0-52.0); HEMOGLOBIN 12.6 g/dl (13.5-17.5); LYMPH # 1.6 10^3/uL (1.5-4.5); LYMPH % 25.9 % (24.0-44.0); MEAN CORPUSCULAR HEMOGLOBIN 28.4 pg (27.0-33.0); MEAN CORPUSCULAR HGB CONC 32.1 g/dl (32.0-36.5); MEAN CORPUSCULAR VOLUME 88.5 fl (80.0-96.0); MONO # 0.6 10^3/uL (0.0-0.8); MONO % 9.4 % (0.0-5.0); NEUTROPHILS # 3.9 10^3/uL (1.8-7.7); NEUTROPHILS % 62.3 % (36.0-66.0); PLATELET COUNT, AUTOMATED 174 10^3/uL (150-450); RED BLOOD COUNT 4.43 10^6/uL (4.30-6.10); WHITE BLOOD COUNT 6.2 10^3/uL (4.0-10.0)
[2018-06-30 11:23] LABS: INR 2.54; PROTHROMBIN TIME 27.9 SECONDS (12.1-14.4)
[2018-06-30 12:05] LABS: ALBUMIN 3.8 GM/DL (3.2-5.2); ALT/SGPT 23 U/L (12-78); BILIRUBIN,TOTAL 0.5 MG/DL (0.2-1.0); BLOOD UREA NITROGEN 12 MG/DL (7-18); CALCIUM LEVEL 8.6 MG/DL (8.8-10.2); CARBON DIOXIDE LEVEL 31 MEQ/L (21-32); CHLORIDE LEVEL 105 MEQ/L (98-107); GLOMERULAR FILTRATION RATE > 60.0 (>42); GLUCOSE, FASTING 239 MG/DL (70-100); POTASSIUM SERUM 4.3 MEQ/L (3.5-5.1); SODIUM LEVEL 139 MEQ/L (136-145); TOTAL PROTEIN 6.8 GM/DL (6.4-8.2)
== END ==
LOC: M LAB 10:42
PROVIDERS: ATTEND Surgery Vascular Surgery
DX: I73.9 Peripheral vascular disease, unspecified (principal); I87.311 Chronic venous hypertension (idiopathic) with ulcer of right lower extremity

== ENCOUNTER → 2018-08-03 | Outpatient (CLI) | payer OTHER ==
[~2018-08-03] MED LIST changes: +ACETAMINOPHEN 325 MG TAB As Ordered ONE; +HEPARIN 1,000 UNITS/ML 10ML VIAL (FOR RADIOLOGY& DIALYSIS ONLY) As Ordered ONE; +ISOVUE-300 61% 50ML VIAL (Q9967) As Ordered ONE; +LIDOCAINE 2% MDV 20 ML VIAL As Ordered ONE; +MIDAZOLAM INJ 2 MG/2 ML VIAL (J2250) As Ordered ONE; +NITROGLYCERIN IN D5W 25MG/250ML (100MCG/ML) As Ordered ONE; +fentaNYL 100 MCG/2 ML INJECTION (J3010) As Ordered ONE; +hydrALAZINE INJ 20 MG/ML VIAL As Ordered ONE
[2018-08-03 11:34] LABS: INR 1.97; PROTHROMBIN TIME 22.8 SECONDS (12.1-14.4)
--- NOTE | 2018-08-04 16:52 | ROOPDOC ---
[facility] Report Of Operation Report of Operation DATE OF PROCEDURE: 08/03/18 PREPROCEDURE DIAGNOSES: Atherosclerosis of the [place] arteries of the right lower extremity with ulceration of the toes POSTPROCEDURE DIAGNOSES: Same PROCEDURE: 1. Ultrasound-guided access left common femoral artery 2. Antegrade ultrasound-guided access right common femoral artery 3. Right lower extremity arteriogram with selective views of the popliteal, anterior tibial and posterior tibial arteries 4. Angioplasty of the anterior tibial artery with 3 x 200 Gardiner balloon, 3 x 220 [place]ano balloon, 3 x 100 Gardiner balloon 5. Angioplasty the posterior tibial artery with a 3 x 200 Gardiner balloon 6. Completion arteriograms 7. Mynx closure left common femoral artery and antegrade access right common femoral artery SURGEON: Fabricio Dorantes MD ANESTHESIA: Local anesthesia with 14 mL of lidocaine. Moderate intravenous conscious sedation was supervised by Dr. Dorantes. The patient was independently monitored by a registered nurse assigned to the Department of radiology using automated blood pressure, EKG, and pulse oximetry. The details conscious record is permanently stored in the hospital information system. The following is the conscious sedation record: Start time 12:03, end time 14:19, Versed 1 mg IV, fentanyl 50 g IV, nitroglycerin 700 g per referral through sheath, heparin 5000 units IV CONTRAST: 80 mL Omnipaque INDICATION FOR PROCEDURE: Mr. Paniagua is a 72-year-old diabetic gentleman with b ilateral lower extremity tibial disease and slow healing ulcers of the first second third toes. Risks benefits and alternatives to an arteriogram with potential intervention were explained to the patient. He is agreeable to proceed. Informed consent was obtained. INTERPRETATION: 1. Initial imaging from our access point in the left common femoral artery is a bit confusing. The patient denies any history of iliac stents, EVAR, or other work done but he appears to have either viabahn kissing stents well into the distal aorta versus an aortoiliac stent. It appears that the stents and at the inguinal ligaments bilaterally. This has raised the bifurcation and prevented us from being able to go up and over to the right side. That is the reason we selected to then access the patient's right side antegrade from the right common femoral artery. 2. The patient has a widely patent iliofemoral system, and the popliteal arteries also widely patent. 3. The peroneal artery is the best runoff to the ankle and has small collaterals that feed the distal anterior tibial artery and posterior tibial artery at the ankle. The anterior tibial artery occludes in the mid calf, the distal reconstituting from collateral circulation. The posterior tibial artery occludes the proximal third of the calf, and has some collateral flow down to the ankle and also collateral flow from the peroneal artery to fill at the ankle. 4. After angioplasty, the anterior tibial artery is open in line to the foot. The heavy calcified plaque at the ankle was resistant to angioplasty, and there is still approximately 30-40% residual stenosis in this area, but it is significantly improved from baseline and is patent. 5. We were unable to cross all the way to the ankle and the posterior tibial artery and this was aborted. We did angioplasty the vessel to the distal third, where we were able to cross safely intraluminally. Unfortunately, we were not able to find a true lumen path through the distal third of the vessel to the ankle. PROCEDURE: The patient was brought to the angiographic suite in stable condition. His bilateral groins were prepped and draped in a sterile fashion. Sedation was administered without complication. A timeout was performed. Local anesthesia was administered to the skin and subcutaneous tissue in the left groin. A microneedle was used to access the common femoral artery under ultrasound guidance. A wire was passed through this access and a micro-sheath was placed. We then passed a Glidewire into the distal aorta under fluoroscopic guidance exchanged the sheath for a 5 Comoran sheath and flushed the sheath was saline. We advanced the catheter over the Glidewire and attempted to go up and over the bifurcation but met with resistance and noted that the bifurcation was elevated by stents or endovascular aortoiliac graft. This precluded us from being able to go up and over the bifurcation, thus we planned at that point to change her approach to and antegrade access from the right common femoral artery. Local anesthesia was administered to the skin and subcutaneous tissue in the right groin and a microneedle was used to access the common femoral artery under ultrasound guidance. A wire was passed through this access and a 5 Comoran sheath was placed with its tip in the superficial femoral artery and flushed with saline. We performed an arteriogram and found widely patent femoral and popliteal vessels, with the main runoff to the foot through the peroneal artery which provided small collaterals to the distal posterior tibial and anterior tibial artery. The anterior tibial artery occluded in the mid calf in the posterior tibial artery occluded in the mid third of the vessel. We began with an attempt to cross the anterior tibial artery. We advanced her Glidewire into the anterior tibial artery and an O35 Wesson catheter was used to cross into the distal vessel. We can firmware in the true lumen with a quick injection of contrast. We then angioplastied over the wire with a 3 x 200 Gardiner balloon for three-minute inflations. Following this, there was a little bit of spasm which was relieved with 200 g of nitroglycerin directly into the vessel, in contrast injection revealed better flow but not perfect, which we attributed initially to spasm. We then changed her attention to the posterior tibial artery that un fortunately we were only able to cross to the distal third. When we tried to cross the ankle, we could not stay intraluminal and could not reenter the true lumen. We attempted to cross for about 20 minutes, and then this was aborted. We did angioplasty down to the distal third where we were able to get across, utilizing the 3 x 200 Gardiner balloon for three-minute inflations. Completion arteriogram showed flow through to the mid distal third of the posterior tibial artery and flow through the peroneal artery, but now we noticed there was almost no flow through the distal anterior tibial artery, similar to before angioplasty. At this point I did not think this was due to spasm and felt there was likely still some plaque further distal that we had not initially appreciated. We did an oblique angle arteriogram to rotate the peroneal artery off of the anterior tibial artery and saw there was a significant amount of plaque. We were able to navigate a wire all the way into the dorsal pedis artery, but we utilized an O18 system to get this for distal. We then used a 3 x 220 [place] balloon to angioplasty all the way down to the dorsal pedis artery. Three-minute inflations were performed. The plaque in this area was very heavy and calcified and was resistant to angioplasty. Therefore, I thought a shorter stronger balloon may be helpful and we exchanged for 3 x 100 Gardiner balloon. Intermittent injections of nitroglycerin were performed for a total of 700 g directly into the tibial vessels. The patient was hypertensive throughout the case and tolerated this well. Another three-minute inflation was performed, and there was definitely an improvement with in-line flow all the way through to the foot, but there was still irregularity the vessel and heavy calcified plaque a long the wall that left about 30% residual stenosis. I do not feel third further angioplasty would be helpful, and the patient had an easily palpable pulse in his foot per the nurse whereas Pre-Op he had only monophasic Doppler signals. I felt this was the best that improve the flow at this point. We therefore deployed and minx closure device in the right and left common femoral artery under fluoroscopic guidance. Pressure was held for 10 minutes at each groin and good hemostasis was achieved. Sterile dressings were applied. The patient was taken back to recovery in stable condition and monitored on bedrest and eventually discharge once all discharge criteria were met. He did very well with the procedure and the sedation. ESTIMATED BLOOD LOSS: Approximately 10 mL. COMPLICATIONS: None. PLAN: The patient will resume his Coumadin anticoagulation tonight. We will see him back in a week to check his bilateral groin access and perfusion. FABRICIO DORANTES MD Aug 04, 2018 16:52
== END | disposition home or self-care (01) ==
LOC: M IRPRO 10:28
PROVIDERS: ATTEND Surgery Vascular Surgery
DX: I70.235 Atherosclerosis of native arteries of right leg with ulceration of other part of foot (principal); E11.51 Type 2 diabetes mellitus with diabetic peripheral angiopathy without gangrene; E11.621 Type 2 diabetes mellitus with foot ulcer; L97.519 Non-pressure chronic ulcer of other part of right foot with unspecified severity
CPT/HCPCS: 36140; 37228; 37232; 75710; 75774; 85610; 99152; 99153; C1725; C1760; C1769; C1887; C1894; J2250; J3010; Q9967

== ENCOUNTER → 2018-11-21 | Outpatient (CLI) | payer MEDICARE, BC ==
[~2018-11-21] MED LIST changes: -ACETAMINOPHEN 325 MG TAB As Ordered ONE; -HEPARIN 1,000 UNITS/ML 10ML VIAL (FOR RADIOLOGY& DIALYSIS ONLY) As Ordered ONE; -ISOVUE-300 61% 50ML VIAL (Q9967) As Ordered ONE; -LIDOCAINE 2% MDV 20 ML VIAL As Ordered ONE; -MIDAZOLAM INJ 2 MG/2 ML VIAL (J2250) As Ordered ONE; -NITROGLYCERIN IN D5W 25MG/250ML (100MCG/ML) As Ordered ONE; -fentaNYL 100 MCG/2 ML INJECTION (J3010) As Ordered ONE; -hydrALAZINE INJ 20 MG/ML VIAL As Ordered ONE
== END ==
LOC: M SMT 08:31
PROVIDERS: ATTEND General Practice
DX: E10.65 Type 1 diabetes mellitus with hyperglycemia (principal)

== ENCOUNTER → 2018-11-28 | Outpatient (CLI) | payer MEDICARE, BC ==
--- NOTE | 2018-11-28 13:50 | REP ---
BILATERAL LOWER EXTREMITY DUPLEX DOPPLER ARTERIAL ULTRASOUND: Real-time sonographic evaluation and duplex Doppler interrogation of the bilateral lower extremity arterial systems is performed. Comparison is made with a prior study of 06/07/2018. Moderate diffuse plaquing and narrowing is seen bilaterally. There is no hemodynamically significant stenosis identified above the knee. There is decreased flow in the distal right posterior tibial artery suggesting stenosis, with monophasic waveforms in the right distal anterior and posterior tibial arteries. Otherwise triphasic and biphasic waveforms are seen proximal to that, except for monophasic waveform in the profunda. On the left there are monophasic waveforms in the profunda and distal posterior tibial artery. RIGHT LEFT Peak systolic velocity common femoral artery 78.1 cm/s 74.7 cm/s Profunda 73.5 cm/s 69.4 cm/s Proximal SFA 59.5 cm/s 61.1 cm/s Mid SFA 77.3 cm/s 81.4 cm/s Distal SFA 56.0 cm/s 69.0 cm/s Popliteal 69.4 cm/s 68.2 cm/s Proximal YAMILET 38.2 cm/s 34.2 cm/s Tibioperoneal trunk 63.4 cm/s 82.1 cm/s Proximal FUR REMODELER 31.8 cm/s 44.8 cm/s Distal FUR REMODELER 18.3 cm/s 16.3 cm/s Distal YAMILET 32.9 cm/s 67.6 cm/s ROXANNA 1.09 1.2 IMPRESSION: No evidence of significant stenosis above the knee. There are findings suggesting stenosis of the mid to distal right posterior tibial artery and possibly mid to distal left posterior tibial artery. Electronically Signed by Osman Long MD 11/28/2018 11:38 P
== END ==
LOC: M RAD 10:53
PROVIDERS: ATTEND Surgery Vascular Surgery
DX: I70.213 Atherosclerosis of native arteries of extremities with intermittent claudication, bilateral legs (principal)

== ENCOUNTER → 2018-12-16 | Outpatient (CLI) | payer MEDICARE, BC ==
[2018-12-16 17:17] LABS: BLOOD UREA NITROGEN 11 MG/DL (7-18); CALCIUM LEVEL 8.7 MG/DL (8.8-10.2); CARBON DIOXIDE LEVEL 30 MEQ/L (21-32); CHLORIDE LEVEL 105 MEQ/L (98-107); CREATININE FOR GFR 0.86 MG/DL (0.70-1.30); GLOMERULAR FILTRATION RATE > 60.0 (>42); GLUCOSE, FASTING 137 MG/DL (70-100); POTASSIUM SERUM 4.5 MEQ/L (3.5-5.1); SODIUM LEVEL 141 MEQ/L (136-145)
[2018-12-16 17:44] LABS: HEMATOCRIT 38.7 % (42.0-52.0); HEMOGLOBIN 12.1 g/dl (13.5-17.5); MEAN CORPUSCULAR HEMOGLOBIN 28.1 pg (27.0-33.0); MEAN CORPUSCULAR HGB CONC 31.3 g/dl (32.0-36.5); PLATELET COUNT, AUTOMATED 235 10^3/uL (150-450); WHITE BLOOD COUNT 6.7 10^3/uL (4.0-10.0)
== END ==
LOC: M SMT 13:10
PROVIDERS: ATTEND Surgery Vascular Surgery
DX: I70.202 Unspecified atherosclerosis of native arteries of extremities, left leg (principal)

== ENCOUNTER → 2018-12-20 | Outpatient (CLI) | payer MEDICARE, BC ==
[~2018-12-20] MED LIST changes: +HEPARIN 1,000 UNITS/ML 10ML VIAL (FOR RADIOLOGY& DIALYSIS ONLY) As Ordered ONE; +ISOVUE-300 61% 50ML VIAL (Q9967) As Ordered ONE; +LIDOCAINE 1% MDV 20ML VIAL As Ordered ONE; +MIDAZOLAM INJ 2 MG/2 ML VIAL (J2250) As Ordered ONE; +diphenhydrAMINE INJ 50MG/ML VIAL (J1200) As Ordered ONE; +fentaNYL 100 MCG/2 ML INJECTION (J3010) As Ordered ONE
--- NOTE | 2018-12-20 10:15 | ROOPDOC ---
[facility] Report Of Operation Report of Operation DATE OF PROCEDURE: 12/20/18 PREPROCEDURE DIAGNOSES: Atherosclerosis in the [place] arteries with claudication right lower extremity and pain in foot POSTPROCEDURE DIAGNOSES: Same PROCEDURE: 1. Ultrasound-guided access left common femoral artery 2. Aortoiliofemoral arteriogram 3. Mynx closure left common femoral artery 4. Ultrasound-guided access right superficial femoral artery antegrade 5. Right lower extremity arteriogram with selection views of right anterior tibial artery, right dorsal pedis artery, right posterior tibial artery, right plantar artery 6. 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 Cross chronic total occlusion distal right anterior tibial artery and angioplasty with a 3 x 220 [place] balloon 8. Completion arteriograms right lower extremity 9. Mynx closure right common femoral artery SURGEON: Amanda Dorantes MD ANESTHESIA: Local anesthesia with 7 mL lidocaine. Moderate intravenous conscious sedation was supervised by Dr. Dorantes. The patient was independently monitored by registered nurse assigned to the Department of radiology using automated blood pressure, EKG, and pulse oximetry. The detailed sedation record is permanently housed in the hospital information system. The following is the brief sedation record: Start time 07 32, stop time 09 40, fentanyl 25 g IV, Versed 1.5 mg IV, heparin 6000 units IV. CONTRAST: 60ml INDICATION FOR PROCEDURE: Mr. Paniagua is a very pleasant 73-year-old gentleman with atherosclerosis the [place] vessels, primarily distal tibial and pedal disease, secondary to diabetes. We have performed and angioplasty on him before an attempt to open this up and it was extremely challenging due to spasm and small vessels, along with chronic heavily calcified disease. He will return to clinic for 3 month follow-up and his noninvasive arterial duplex suggested he had recurrent disease in the tibials with limited flow. Unfortunately, I discussed with the patient there are not lot of options other than a repeat angioplasty to try and improve flow. I'm not sure how long it would stay open since it didn't last very long the first time, but sometimes if we hit it one more time with the angioplasty it will remain open for a longer period of time. He is agreeable to try this and after discussing the risks benefits and alternat leonel at length informed consent was obtained. INTERPRETATION: 1. The patient has what appears to be large iliac stent extending well into the infrarenal aorta, although he does not recall having these stents placed and has no incisions at the groin. He thinks this may be secondary to an arterial repair after cardiac intervention. Nevertheless, this precluded us from using an up and over approach. 2. After antegrade access in the right lower extremity, we found widely patent flow through the SFA and popliteal down to the tibial vessels. Initially, there is good 3 vessel runoff in the proximal calf and the anterior tibial and posteri or tibial arteries occlude Stevenson 10 cm from their origins. They do not reconstitute. The peroneal arteries the main runoff to the foot. 3. After extensive multiple angioplasties across the posterior tibial artery into the plantar artery of the foot, we did open up the vessel all the way to the foot but there is no outflow at the foot. Likely due to chronic pedal disease, this limited outflow precludes us from having improved circulation by angioplasty the posterior tibial artery. Unfortunately, even after angioplasty across the foot, we were not able to provide adequate outflow to keep this vessel open. 4. After extensive angioplasties across the anterior tibial artery and the dorsal pedis artery, we were able to provide in-line flow through the anterior tibial artery to the foot. This gives the patient two-vessel runoff. 5. Completion arteriograms revealed that there is no extravasation, embolization, or dissection in the areas of angioplasty. REPORT OF OPERATION: Patient was brought to the angiographic suite in stable condition and placed supine on the fluoroscopic table. His bilateral groins were prepped and draped in a sterile fashion. A timeout was performed. Sedation was administered without complication. Ultrasound was used to guide access to the left common femoral artery after local anesthesia was administered to the groin. A microneedle was used to access the artery and a wire was passed through this access under fluoroscopic guidance and a micro-sheath was placed. A Glidewire was advanced into the aorta under fluoroscopic guidance through this access and the sheath was exchanged for 6 Vietnamese sheath which was flushed with saline. We then attempted to go up and over and noted stent extending well into the infrarenal aorta. This precluded us from going up and over the bifurcation and therefore we deployed a Mincks closure device in the left groin with good hemostasis. We then used ultrasound to gain access to the right superficial femoral artery with a microneedle and a wire was passed through this access under fluoroscopic guidance into the SFA. We placed a micro-sheath and then a Glidewire through this access into the popliteal artery and exchange the sheath for a 6 Vietnamese sheath and flushed sheath with saline. Next, we performed arteriograms which showed vessels were patent down to the tibials and the anterior tibial and posterior tibial occlude approximately 10 cm from their origins. We first crossed into the posterior tibial artery and it took quite some time to cross distally, but we were able to get to the mid posterior tibial with a Glidewire and light cath and then exchanged for an O18 wire and an O18 Rubik on. We were then able to cross distal to the ankle. This was time consuming and challenging due to the antegrade access, but eventually we were able to get into the plantar vessel and we angioplastied first with a small balloon to prevent spasm, and used a 2 x 220 [place] across the entire posterior tibial artery for three-minute inflations. Following this, there is still was no outflow. We then switched to a 2.5 x 220 [place] balloon to see if we can openings at the bit further, but we still did not note good flow dis tally. We exchanged for a 3 x 220 [place] balloon and angioplastied all the way across the arch of the foot into the plantar vessels to try to improve outflow, and when we injected through the end of the balloon after angioplasty we saw that the tibial was open proximally throughout but there was just no outflow distal to that in the foot. Unfortunately, there is no intervention I can provide further microcirculation in the distal foot. All tibial angioplasties were three-minute inflations at 4 julia. The anterior tibial artery was accessed with the glide And 018 wire and we cross to the mid anterior tibial artery. We then exchanged for the 3 x 220 balloon and angioplastied the proximal two thirds. We then utilized the balloon and the wire to cross distally all the way into the dorsal pedis artery at the proximal foot and confirmed we were in good position with the quick arteriogram, and then angioplastied again across into the dorsal pedis artery with a 3 x 220 balloon. Following this, there was in- line flow through the anterior tibial artery to the foot. This cavus two-vessel runoff. We tried one more time to improve flow through the posterior tibial artery with a 3 x 220 balloon, but were unsuccessful after additional angioplasty. There simply was no outflow at the pedal vessels but the posterior tibial itself is patent into the foot. This concluded her procedure. Completion arteriogram showed no extravasation, embolization, or dissections. The foot was warm and well-perfused per the nurse. We deployed a Mynx closure device in the right superficial femoral artery access site with good hemostasis. Pressure was held for 10 minutes and the patient was taken to recovery in stable condition. He tolerated the sedation and the procedure well. ESTIMATED BLOOD LOSS: Approximately 5 mL. COMPLICATIONS: None PLAN: Our plan is to see the patient back in clinic in a week to check his access sites and his perfusion. Unfortunately, I do not have a lot of other options to improve circulation. We will talk to him about continuing to walk frequently to build up collateral circulation. This is a very compliant patient and he may do well with an exercise program. Okay to resume all home medications. AMANDA DORANTES MD Dec 20, 2018 10:15
[2018-12-20 12:00] VITALS: BP 154/65
== END ==
LOC: M IRPRO 06:33
PROVIDERS: ATTEND Surgery Vascular Surgery
DX: I70.212 Atherosclerosis of native arteries of extremities with intermittent claudication, left leg (principal); I70.92 Chronic total occlusion of artery of the extremities; M79.672 Pain in left foot; E11.51 Type 2 diabetes mellitus with diabetic peripheral angiopathy without gangrene
CPT/HCPCS: 37228; 37232; 75710; 99152; 99153; C1725; C1760; C1769; C1887; C1894; J2250; J3010; Q9967

== ENCOUNTER → 2019-01-03 | Outpatient (CLI) | payer MEDICARE, BC ==
[~2019-01-03] MED LIST changes: -HEPARIN 1,000 UNITS/ML 10ML VIAL (FOR RADIOLOGY& DIALYSIS ONLY) As Ordered ONE; -ISOVUE-300 61% 50ML VIAL (Q9967) As Ordered ONE; -LIDOCAINE 1% MDV 20ML VIAL As Ordered ONE; -MIDAZOLAM INJ 2 MG/2 ML VIAL (J2250) As Ordered ONE; -diphenhydrAMINE INJ 50MG/ML VIAL (J1200) As Ordered ONE; -fentaNYL 100 MCG/2 ML INJECTION (J3010) As Ordered ONE
--- NOTE | 2019-01-03 12:09 | REP ---
Bilateral lower extremity arterial Doppler ultrasound: History: Status post angioplasty balloon. Reevaluation. Comparison study November 28, 2018. Interval angioplasty. Sonographic findings: Ankle brachial indices are measured at 1.0 on the right and 0.6 on the left. There is moderate plaquing seen bilaterally. Triphasic arterial Doppler flow patterns are visualized in the right lower extremity proximal to the tibioperoneal trunk. Monophasic waveforms are noted in the distal posterior tibial and distal anterior tibial artery on the right. Triphasic or bright biphasic waveforms are noted throughout the left lower extremity arteries. Doppler velocity chart right lower extremity arteries: CF A 87 cm/S Profunda 94 Proximal SFA 76 Mid SFA 85 Distal SFA 56 Popliteal 45 Proximal AT A 53 Tibioperoneal trunk 70 Proximal BEHAVIORAL HEALTH ASSOCIATE 25 Distal BEHAVIORAL HEALTH ASSOCIATE 23 Distal AT A 53 Doppler velocity chart left lower extremity arteries: CF A 77 cm/S Profunda 57 Proximal SFA 55 Mid SFA 77 Distal SFA 56 Popliteal 68 Proximal AT A 36 Tibioperoneal trunk 78 Proximal BEHAVIORAL HEALTH ASSOCIATE 33 Distal BEHAVIORAL HEALTH ASSOCIATE 47 Distal YAMILET 50 Electronically Signed by Donnell Espinoza MD 01/03/2019 12:00 P
== END ==
LOC: M RAD 09:00
PROVIDERS: ATTEND Physician Assistant
DX: I70.203 Unspecified atherosclerosis of native arteries of extremities, bilateral legs (principal); Z79.01 Long term (current) use of anticoagulants; E11.9 Type 2 diabetes mellitus without complications; Z79.4 Long term (current) use of insulin; Z09 Encounter for follow-up examination after completed treatment for conditions other than malignant neoplasm

== ENCOUNTER → 2019-04-10 | Outpatient (CLI) | payer MEDICARE, BC ==
[~2019-04-10] MED LIST changes: +DIGO0.123 PO
--- NOTE | 2019-04-10 14:02 | REP ---
Bilateral lower extremity arterial Doppler ultrasound: History: Atherosclerosis. Intermittent claudication left leg. Atherosclerosis right leg. Status post right lower extremity calf vessel angioplasty. Reevaluation. Comparison study January 03, 2019. Findings: Ankle brachial indices could not be calculated today due to noncompressible vessels bilaterally. Heavily calcified vessels are seen but throughout the lower extremities. Monophasic arterial Doppler waveforms are noted in the calves bilaterally. The left posterior tibial artery is thread size with a trickle of flow distally. Similar to previous study. Velocity chart right lower extremity arteries: CF A 76 cm/S Profunda 63 Proximal SFA 49 Mid SFA 77 Distal SFA 50 Popliteal 48 Proximal AT A 64 Tibioperoneal trunk 44 Proximal CORPORATE TRAINING MANAGER 32 Distal CORPORATE TRAINING MANAGER 21 Distal AT A 57 Velocity chart left lower extremity arteries: CF A 87 cm/S Profunda 75 Proximal SFA 66 Mid SFA 64 Distal SFA 54 Popliteal 45 Proximal AT A 58 Tibioperoneal trunk 52 Proximal CORPORATE TRAINING MANAGER 23 Distal CORPORATE TRAINING MANAGER 34 Distal AT A 95 Electronically Signed by Donnell Espinoza MD 04/10/2019 01:53 P
== END ==
LOC: M RAD 12:23
PROVIDERS: ATTEND Physician Assistant
DX: I70.203 Unspecified atherosclerosis of native arteries of extremities, bilateral legs (principal); I70.212 Atherosclerosis of native arteries of extremities with intermittent claudication, left leg

== ENCOUNTER → 2019-11-02 | Outpatient (CLI) | payer MEDICARE, BC ==
[~2019-11-02] MED LIST changes: +CALC-211 PO; -CALCTAB7 PO; -COUM6TAB PO; +COUM6TAB10 PO; +PANT40TA29 PO; -PANT40TA3 PO
[2019-11-02 16:25] LABS: ALBUMIN 3.5 GM/DL (3.2-5.2); ALT/SGPT 22 U/L (12-78); BILIRUBIN,TOTAL 0.7 MG/DL (0.2-1.0); BLOOD UREA NITROGEN 8 MG/DL (7-18); CALCIUM LEVEL 8.6 MG/DL (8.8-10.2); CARBON DIOXIDE LEVEL 32 MEQ/L (21-32); CHLORIDE LEVEL 107 MEQ/L (98-107); CHOLESTEROL LEVEL 134 MG/DL (<200); CHOLESTEROL RISK RATIO 2.271 (<5); CREATININE FOR GFR 0.87 MG/DL (0.70-1.30); GLOMERULAR FILTRATION RATE > 60.0 (>42); GLUCOSE, FASTING 147 MG/DL (70-100); HDL CHOLESTEROL 59 MG/DL (>40); LDL CHOLESTEROL 61 MG/DL (<100); NON-HDL-C 75 MG/DL; POTASSIUM SERUM 4.8 MEQ/L (3.5-5.1); SODIUM LEVEL 139 MEQ/L (136-145); TRIGLYCERIDES LEVEL 72 MG/DL (<150)
[2019-11-02 17:52] LABS: HEMOGLOBIN A1c 7.6 %
== END ==
LOC: M PLALAB 13:11
PROVIDERS: ATTEND Internal Medicine Endocrinology, Diabetes & Metabolism
DX: E10.649 Type 1 diabetes mellitus with hypoglycemia without coma (principal)

== ENCOUNTER → 2019-12-21 | Outpatient (CLI) | payer MEDICARE, BC ==
--- NOTE | 2019-12-21 13:16 | REP ---
INDICATION: [facility] [place] [facility] ART OF EXTRM WITH INTE GERBER [place] COMPARISON: 04/10/2019. TECHNIQUE: Real time long scale and Duplex Doppler evaluation of the bilateral lower extremity arterial vasculature using linear high frequency transducer. FINDINGS: Long scale and duplex doppler images demonstrate diffuse heavily calcified vessels bilaterally particularly in the lower legs. Diffuse triphasic and biphasic waveforms are noted except for monophasic waveform in the distal right anterior tibial artery and left posterior tibial artery. There is occlusion of the bilateral mid to distal posterior tibial arteries and mid to distal right anterior tibial artery with reconstitution of these vessels more distally. Only trickle flow is seen in the distal left posterior tibial artery. Compared to the prior study there appears to be increased narrowing of the vessels in the lower legs bilaterally. Peak systolic velocities (cm/sec) Common femoral artery: Right 65; Left 57 Profunda femoris: Right 78; Left 86 SFA (proximal): Right 68; Left 79 SFA (mid): Right 83; Left 92 SFA (distal): Right 64; Left 70 Popliteal artery: Right 75; Left 44 YAMILET (prox.): Right 49; Left 45 Tibioperoneal trunk: Right 42; Left 41 MECHANICAL TEST ENGINEER (prox.): Right 30; Left 40 MECHANICAL TEST ENGINEER (distal): Right occluded; Left 13 YAMILET (distal): Right 67; Left 121 IMPRESSION: Heavy atherosclerotic calcification of the bilateral lower extremity arterial systems particularly in the lower legs. 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 Narrowing of the calf arteries appears increased compared to the prior study. <Electronically signed by Osman Long > 12/21/19 [id number]
== END ==
LOC: M RAD 11:33
PROVIDERS: ATTEND Physician Assistant
DX: I70.213 Atherosclerosis of native arteries of extremities with intermittent claudication, bilateral legs (principal)

== ENCOUNTER → 2020-07-13 | Outpatient (CLI) | payer MEDICARE, BC ==
[~2020-07-13] MED LIST changes: +ASPI-569 PO; -ASPI81TAEC PO; -LISI-538 PO; +LISI20TA33 PO
== END ==
LOC: M LABSMTC 09:53
PROVIDERS: ATTEND Internal Medicine Cardiovascular Disease
DX: Z20.828 Contact with and (suspected) exposure to other viral communicable diseases (principal); Z11.59 Encounter for screening for other viral diseases

== ENCOUNTER 2020-08-30 08:36 | Emergency (ER) | payer MEDICARE, BC ==
[~2020-08-30] VITALS: Ht 172.7 cm; Wt 81.0 kg
[2020-08-30 09:11] LABS: HEMATOCRIT 38.9 % (42.0-52.0); HEMOGLOBIN 12.6 g/dl (13.5-17.5); MEAN CORPUSCULAR HEMOGLOBIN 27.7 pg (27.0-33.0); MEAN CORPUSCULAR HGB CONC 32.4 g/dl (32.0-36.5); MEAN CORPUSCULAR VOLUME 85.5 fl (80.0-96.0); PLATELET COUNT, AUTOMATED 185 10^3/uL (150-450); RED BLOOD COUNT 4.55 10^6/uL (4.30-6.10); WHITE BLOOD COUNT 9.5 10^3/uL (4.0-10.0)
[2020-08-30 09:33] LABS: BLOOD UREA NITROGEN 13 MG/DL (7-18); CALCIUM LEVEL 8.1 MG/DL (8.8-10.2); CARBON DIOXIDE LEVEL 29 MEQ/L (21-32); CHLORIDE LEVEL 106 MEQ/L (98-107); GLOMERULAR FILTRATION RATE > 60.0 (>42); GLUCOSE, FASTING 136 MG/DL (70-100); POTASSIUM SERUM 3.9 MEQ/L (3.5-5.1); SODIUM LEVEL 140 MEQ/L (136-145)
[2020-08-30] MEDS ORDERED: CLOP75TA2 (10:02)
[2020-08-30 10:03] LABS: INR 1.41; PROTHROMBIN TIME 17.6 SECONDS (12.5-14.3)
[2020-08-30] MEDS ORDERED: LIDOCAINE 2% W/EPINEPHRINE 20ML VIAL **PRES FREE INJ ONE (11:05)
[2020-08-30 13:16] VITALS: BP 174/92
== END 2020-08-30 13:38 | disposition home or self-care (01) ==
LOC: M ED 08:36 → EDBD 08:36 → M ED 13:38
DX: L76.22 Postprocedural hemorrhage of skin and subcutaneous tissue following other procedure (principal); E11.9 Type 2 diabetes mellitus without complications; I48.91 Unspecified atrial fibrillation; Z79.01 Long term (current) use of anticoagulants; Z79.899 Other long term (current) drug therapy; Z88.1 Allergy status to other antibiotic agents; Z88.6 Allergy status to analgesic agent; Z95.5 Presence of coronary angioplasty implant and graft

== ENCOUNTER → 2020-11-15 | Outpatient (CLI) | payer MEDICARE, BC ==
[~2020-11-15] MED LIST changes: +CLOP75TA2
[2020-11-15 16:20] LABS: HEMATOCRIT 38.7 % (42.0-52.0); HEMOGLOBIN 12.1 g/dl (13.5-17.5); MEAN CORPUSCULAR HEMOGLOBIN 26.6 pg (27.0-33.0); MEAN CORPUSCULAR HGB CONC 31.3 g/dl (32.0-36.5); MEAN CORPUSCULAR VOLUME 85.1 fl (80.0-96.0); PLATELET COUNT, AUTOMATED 184 10^3/uL (150-450); RED BLOOD COUNT 4.55 10^6/uL (4.30-6.10); WHITE BLOOD COUNT 6.1 10^3/uL (4.0-10.0)
== END ==
LOC: M WUC 11:26
PROVIDERS: ATTEND Physician Assistant
DX: I48.20 Chronic atrial fibrillation, unspecified (principal); Z79.899 Other long term (current) drug therapy

== ENCOUNTER → 2020-11-22 | Outpatient (CLI) | payer MEDICARE, BC ==
[2020-11-22 16:22] LABS: CHOLESTEROL RISK RATIO 2.574 (<5)
[2020-11-22 16:36] LABS: MALB URINE SIEMENS 30.2 MG/L; MAU/CREAT RATIO 16.5 MCG/MG (0.0-30.0)
[2020-11-22 17:17] LABS: HEMOGLOBIN A1c 7.7 %
[2020-11-24 08:08] LABS: LDL DIRECT 70 mg/dL (0-99)
== END ==
LOC: M WUC 13:49
PROVIDERS: ATTEND Nurse Practitioner Family
DX: E10.65 Type 1 diabetes mellitus with hyperglycemia (principal); E78.5 Hyperlipidemia, unspecified

== ENCOUNTER → 2021-05-15 | Outpatient (CLI) | payer MEDICARE, BC | LOC: M WUC 11:34 | PROVIDERS: ATTEND Family Medicine | DX: M79.601 Pain in right arm (principal) ==